=== PATIENT | female | born 1980 | race Caucasian/White ===

== ENCOUNTER 2020-01-20 15:58 | Emergency (ER) | payer BC ==
[2020-01-20 16:08] VITALS: BP 135/88; PULSE 103; RESP 16; TEMP 98.2
[2020-01-20] MEDS ORDERED: methylPREDNISolone SOD SUCCI 125 MG/2 ML VIAL IV STA (16:30)
[2020-01-20] MEDS ORDERED: traMADol 50 MG STARTER PACK 3 TAB BTL PO STA (16:35)
--- NOTE | 2020-01-20 16:35 | ED ---
Back Pain HPI - General Chief Complaint: Back Pain/Injury Stated Complaint: Sciatic pain Time Seen by Provider: 01/20/20 16:05 Source: patient, EMS Limitations: no limitations - History of Present Illness Initial Comments: Patient is a 39-year-old female presenting to the emergency department via EMS with complaints of a flareup of right-sided sciatica. Patient states she has been dealing with this for approximately 3-4 weeks, she's been seeing a Chirpractor. Patient states today she moved wrong way walking to the kitchen and had an immense amount of pain in her right gluteal area extending down into her right leg. Patient states she had a hard time sitting or standing and was in an immense amount of pain she called EMS. Patient received 3 mg of morphine and Zofran and that the EMS prior to arrival. Currently her pain is improved. She denies any recent falls or trauma. She does admit to some radiating pain and extending down into her right lower leg. She denies any numbness or tingling. She denies any bowel or bladder incontinence. She denies any injuries to her back or prior surgeries. She denies any recent fever or chills. She has no further complaints. - Related Data Previous Rx's Medication Instructions Recorded methylPREDNISolone [Medrol Dose 4 mg PO DIRECTED #1 pack 01/20/20 Pack] Allergies Allergy/AdvReac Type Severity Reaction Status Date / Time Penicillins Allergy Rash/Hives Verified 01/20/20 16:04 Review of Systems ROS Statement: Those systems with pertinent positive or pertinent negative responses have been documented in the HPI. ROS Other: All systems not noted in ROS Statement are negative. Past Medical History Past Medical History: No Reported History History of Any Multi-Drug Resistant Organisms: None Reported Past Surgical History: No Surgical Hx Reported Smoking Status: Never smoker Past Alcohol Use History: Occasional Past Drug Use History: None Reported General Exam - General Exam Comments Initial Comments: GENERAL: Well-appearing, well-nourished and in no acute distress. HEAD: Atraumatic, normocephalic. EYES: Pupils equal round and reactive to light, extraocular movements intact, sclera anicteric, conjunctiva are normal. ENT: TMs normal, nares patent, oropharynx clear without exudates. Moist mucous membranes. NECK: Normal range of motion, supple without lymphadenopathy or JVD. LUNGS: Breath sounds clear to auscultation bilaterally and equal. No wheezes rales or rhonchi. HEART: Regular rate and rhythm without murmurs, rubs or gallops. ABDOMEN: Soft, nontender, normoactive bowel sounds. No guarding, no rebound. No masses appreciated. : Deferred EXTREMITIES: Pain with palpation of the right sciatic area, patient has full range of motion of her right hip, right knee. Her sensation is equal in bilateral lower extremities. Her strength is 5 out of 5. She has no swelling. No clubbing or cyanosis. NEUROLOGICAL: Normal speech, normal gait. PSYCH: Normal mood, normal affect. SKIN: Warm, Dry, normal turgor, no rashes or lesions noted. Limitations: no limitations Course Vital Signs 01/20/20 16:05 Temperature 98.2 F Pulse Rate 103 H Respiratory 16 Rate Blood Pressure 135/88 O2 Sat by Pulse 100 Oximetry Medical Decision Making - Medical Decision Making Patient is a 39-year-old female here for right-sided sciatic pain. She has been dealing with this for approximately 3-4 weeks, seen a couple doctor. She denies any recent falls or trauma. She did receive morphine and Zofran EMS prior to arrival. On exam today she is mildly tender at the right sciatic area. Her strength is 5 out of 5, she has no North deficits. Patient was able to sit and stand up on her own with minimal pain. I discussed with patient this is most like an acute flareup of her sciatica. We will give her some steroids today as well as a Dosepak to start tomorrow. She will follow-up with her PCP. I did recommend trial of physical therapy if symptoms do not improve. Patient is in agreement with this plan of care. She is stable for discharge. Disposition Clinical Impression: Right sided sciatica Disposition: HOME SELF-CARE Condition: Stable Instructions (If sedation given, give patient instructions): Sciatica (ED) Additional Instructions: Please return to the Emergency Department if symptoms worsen or any other concerns. Continue to use heat to the area, gentle stretching. Follow up with PCP and/or Chiro. Physical therapy might be beneficial. Prescriptions: methylPREDNISolone [Medrol Dose Pack] 4 mg PO DIRECTED #1 pack Is patient prescribed a controlled substance at d/c from ED?: No Referrals: None,Stated [Primary Care Provider] - 1-2 days
== END 2020-01-20 17:01 | disposition home or self-care (01) ==
LOC: EC 15:58
DX: M54.31 Sciatica, right side (principal); Z88.0 Allergy status to penicillin
CPT/HCPCS: 99284; 96374; J2930